=== PATIENT | female | born 1945 | race Caucasian/White ===

== ENCOUNTER 2016-07-01 21:42 | Emergency (ER) | payer MEDICARE ==
[~2016-07-01] VITALS: Ht 162.6 cm; Wt 81.6 kg
[2016-07-01] MEDS ORDERED: TDAP [DIPH/PERTUSSIS/TET] 0.5 ML VIAL IM ONE ×2 (22:34→23:00)
[2016-07-01 23:00] VITALS: BP 132/86
== END 2016-07-01 23:00 | disposition home or self-care (01) ==
LOC: ER 21:45
DX: S01.81XA Laceration without foreign body of other part of head, initial encounter (principal); Z88.1 Allergy status to other antibiotic agents; W10.9XXA Fall (on) (from) unspecified stairs and steps, initial encounter; Y92.89 Other specified places as the place of occurrence of the external cause; Y93.89 Activity, other specified; Y99.8 Other external cause status
CPT/HCPCS: 12011; 90471; 90715; 99283; A4606; A6402 ×2; Z7610